=== PATIENT | female | born 1995 | race African-American/Black ===

== ENCOUNTER 2021-09-04 19:38 | Emergency (ER) | payer OTHER ==
[~2021-09-04] VITALS: Ht 167.6 cm; Wt 70.3 kg
[2021-09-04 20:01] VITALS: BP 108/65
== END 2021-09-04 20:46 | disposition left against medical advice (07) ==
LOC: ER 19:38
DX: H53.8 Other visual disturbances (principal); Z53.21 Procedure and treatment not carried out due to patient leaving prior to being seen by health care provider